=== PATIENT | male | born 1975 | race Caucasian/White ===

== ENCOUNTER 2017-09-27 08:05 | Emergency (ER) | payer OTHER ==
[2017-09-27] MEDS: HYDROCODONE/APAP (10/325) TAB PO (08:52)
== END 2017-09-27 10:26 | disposition home or self-care (01) ==
LOC: FTE 08:05
DX: S93.601A Unspecified sprain of right foot, initial encounter (principal); F17.210 Nicotine dependence, cigarettes, uncomplicated; X58.XXXA Exposure to other specified factors, initial encounter; Y92.9 Unspecified place or not applicable
CPT/HCPCS: 29515; 73630; 99283-25

== ENCOUNTER 2017-11-02 11:47 | Emergency (ER) | payer OTHER ==
[2017-11-02] MEDS: KETOROLAC 30 MG INJ IV (13:57)
[2017-11-02 14:01] LABS: ADD MAN DIFF? NO
[2017-11-02 14:06] LABS: BASOPHIL # 0.1 10^3/ul (0.0-0.1); BASOPHILS % 0.5 % (0.0-2.0); EOSINOPHILS # 0.1 10^3/ul (0.0-0.5); EOSINOPHILS % 1.1 % (0.0-7.0); HEMATOCRIT 37.5 % (42.0-52.0); HEMOGLOBIN 12.9 g/dl (14.0-18.0); LYMPHOCYTES % 18.3 % (15.0-51.0); MEAN CORPUSCULAR HEMOGLOBIN 28.2 pg (29.0-33.0); MEAN CORPUSCULAR HGB CONC 34.4 g/dl (32.0-37.0); MEAN CORPUSCULAR VOLUME 81.9 fl (82.0-101.0); MEAN PLATELET VOLUME 10.3 fl (7.4-10.4); MONOCYTES % 9.5 % (0.0-11.0); NEUTROPHIL # 7.6 10^3/ul (1.6-7.5); NEUTROPHILS % 70.2 % (39.0-77.0); PLATELET COUNT 357 10^3/UL (140-415); RED BLOOD COUNT 4.58 10^6/ul (4.70-6.10); RED CELL DISTRIBUTION WIDTH 11.9 % (11.5-14.5)
[2017-11-02 14:06] LABS: WHITE BLOOD COUNT 10.8 10^3/ul (4.8-10.8)
[2017-11-02] MEDS: CLINDAMYCIN 900 MG/D5W (PMX) 50 ML IVPB (14:09)
[2017-11-02 14:24] LABS: ALANINE AMINOTRANSFERASE 32 IU/L (13-69); ALBUMIN 4.1 g/dl (3.3-4.9); ALBUMIN/GLOBULIN RATIO 1.41; ALKALINE PHOSPHATASE 108 IU/L (42-121); ANION GAP 18 (8-16); ASPARTATE AMINO TRANSFERASE 29 IU/L (15-46); BILIRUBIN,INDIRECT 0.3 mg/dl (0-1.1); BILIRUBIN,TOTAL 0.3 mg/dl (0.2-1.3); BLOOD UREA NITROGEN 10 mg/dl (7-20); CALCIUM 8.8 mg/dl (8.4-10.2); CARBON DIOXIDE 25 mmol/L (21-31); CHLORIDE 99 mmol/L (97-110); CREATININE 0.79 mg/dl (0.61-1.24); GLUCOSE 77 mg/dl (70-220); POTASSIUM 4.5 mmol/L (3.5-5.1); SODIUM 137 mmol/L (135-144)
== END 2017-11-02 15:28 | disposition home or self-care (01) ==
LOC: FTE 11:47
DX: L03.114 Cellulitis of left upper limb (principal); F17.210 Nicotine dependence, cigarettes, uncomplicated
CPT/HCPCS: 80053; 85025; 96374; 96375; 99284-25

== ENCOUNTER 2017-12-25 14:58 | Emergency (ER) | payer OTHER ==
[2017-12-25] MEDS ORDERED: HYDROmorphONE 1 MG/5 ML IV SYRINGE IV (17:26)
[2017-12-25] MEDS ORDERED: ONDANSETRON 4 MG INJ IV (17:26)
[2017-12-25] MEDS ORDERED: SOD CHLORIDE 0.9% 1,000 ML IV (17:26)
== END 2017-12-25 18:00 | disposition left against medical advice (07) ==
LOC: E/R 14:58
DX: R10.10 Upper abdominal pain, unspecified (principal); F17.210 Nicotine dependence, cigarettes, uncomplicated
CPT/HCPCS: 99282; J7030

== ENCOUNTER 2017-12-26 08:39 | Emergency (ER) | payer OTHER ==
[2017-12-26] MEDS ORDERED: CEFTRIAXONE 1 GM INJ IM (09:30)
[2017-12-26 09:31] LABS: ADD MAN DIFF? NO
[2017-12-26] MEDS: SOD CHLORIDE 0.9% 1,000 ML IV (09:34)
[2017-12-26] MEDS: CEFTRIAXONE 1 GM/50 ML (PMX) 50 ML IVPB (09:35)
[2017-12-26 09:46] LABS: BASOPHILS % 0.4 % (0.0-2.0); EOSINOPHILS # 0.3 10^3/ul (0.0-0.5); EOSINOPHILS % 2.3 % (0.0-7.0); HEMATOCRIT 38.8 % (42.0-52.0); HEMOGLOBIN 12.9 g/dl (14.0-18.0); LYMPHOCYTES # 1.9 10^3/ul (0.8-2.9); LYMPHOCYTES % 17.5 % (15.0-51.0); MEAN CORPUSCULAR HEMOGLOBIN 27.2 pg (29.0-33.0); MEAN CORPUSCULAR HGB CONC 33.2 g/dl (32.0-37.0); MEAN CORPUSCULAR VOLUME 81.9 fl (82.0-101.0); MONOCYTE # 1.1 10^3/ul (0.3-0.9); MONOCYTES % 9.6 % (0.0-11.0); NEUTROPHIL # 7.7 10^3/ul (1.6-7.5); NEUTROPHILS % 69.5 % (39.0-77.0); PLATELET COUNT 345 10^3/UL (140-415); RED BLOOD COUNT 4.74 10^6/ul (4.70-6.10); RED CELL DISTRIBUTION WIDTH 19.6 % (11.5-14.5)
[2017-12-26] MEDS: KETOROLAC 30 MG INJ IV (09:48)
[2017-12-26] MEDS: ONDANSETRON 4 MG INJ IV (09:48)
[2017-12-26] MEDS: VANCOMYCIN 1 GM (PMX) 250 ML IVPB (09:49)
[2017-12-26 09:59] LABS: LACTIC ACID 1.6 mmol/L (0.5-2.0)
[2017-12-26 10:02] LABS: ALANINE AMINOTRANSFERASE 100 IU/L (13-69); ALBUMIN 3.5 g/dl (3.3-4.9); ALBUMIN/GLOBULIN RATIO 0.97; ALKALINE PHOSPHATASE 169 IU/L (42-121); ANION GAP 12 (8-16); ASPARTATE AMINO TRANSFERASE 79 IU/L (15-46); BILIRUBIN,INDIRECT 1.3 mg/dl (0-1.1); BILIRUBIN,TOTAL 1.3 mg/dl (0.2-1.3); BLOOD UREA NITROGEN 8 mg/dl (7-20); CALCIUM 8.7 mg/dl (8.4-10.2); CARBON DIOXIDE 28 mmol/L (21-31); CHLORIDE 106 mmol/L (97-110); CREATININE 0.74 mg/dl (0.61-1.24); GLUCOSE 92 mg/dl (70-220); LIPASE 75 U/L (23-300); POTASSIUM 3.8 mmol/L (3.5-5.1); SODIUM 142 mmol/L (135-144); TOTAL PROTEIN 7.1 g/dl (6.1-8.1)
[2017-12-26 10:13] LABS: INR 0.99; PROTIME 13.2 Sec (11.9-14.9)
[2017-12-26 10:14] LABS: PARTIAL THROMBOPLASTIN TIME 31.8 Sec (25.0-35.0)
[2017-12-26 11:08] LABS: ADD UMIC NO; UR ASCORBIC ACID NEGATIVE (NEGATIVE); UR BILIRUBIN (Dip) NEGATIVE (NEGATIVE); UR BLOOD (Dip) NEGATIVE (NEGATIVE); UR CLARITY CLEAR (CLEAR); UR COLOR YELLOW (YELLOW); UR GLUCOSE (Dip) NEGATIVE (NEGATIVE); UR KETONES (Dip) NEGATIVE (NEGATIVE); UR LEUKOCYTE ESTERASE (Dip) NEGATIVE Leu/ul (NEGATIVE); UR NITRITE (Dip) NEGATIVE (NEGATIVE); UR SPECIFIC GRAVITY (Dip) 1.006 (1.003-1.030); UR TOTAL PROTEIN (Dip) NEGATIVE (NEGATIVE); UR UROBILINOGEN (Dip) NEGATIVE (NEGATIVE)
== END 2017-12-26 11:22 | disposition home or self-care (01) ==
LOC: FTE 08:39
DX: L03.113 Cellulitis of right upper limb (principal); Z87.891 Personal history of nicotine dependence
CPT/HCPCS: 36415; 73110; 73110-RT; 76536; 80053; 81003; 83605; 83690; 85025; 85610; 85730; 87040; 96374; 96375; 99285-25

== ENCOUNTER 2018-07-02 12:48 | Emergency (ER) | payer OTHER | END 2018-07-02 16:45 | disposition home or self-care (01) | LOC: FTE 12:48 | DX: S09.90XA Unspecified injury of head, initial encounter (principal); F17.210 Nicotine dependence, cigarettes, uncomplicated; S29.001A Unspecified injury of muscle and tendon of front wall of thorax, initial encounter; R51 Headache; R07.81 Pleurodynia; V89.2XXA Person injured in unspecified motor-vehicle accident, traffic, initial encounter | CPT/HCPCS: 70450; 71045; 72125; 76536; 99284-25 ==

== ENCOUNTER 2018-11-04 07:15 | Emergency (ER) | payer OTHER ==
[2018-11-04] MEDS: SOD CHLORIDE 0.9% 1,000 ML IV (08:08)
[2018-11-04] MEDS: HYDROmorphONE 1 MG/ML SYG IV ×2 (08:08→10:07)
[2018-11-04] MEDS: ONDANSETRON 4 MG INJ IV (08:08)
[2018-11-04 08:22] LABS: ADD MAN DIFF? NO; HAAIG REFLEX REFLEX FILED
[2018-11-04 08:26] LABS: BASOPHILS % 0.5 % (0.0-2.0); EOSINOPHILS # 0.1 10^3/ul (0.0-0.5); EOSINOPHILS % 1.2 % (0.0-7.0); HEMATOCRIT 36.8 % (42.0-52.0); HEMOGLOBIN 12.3 g/dl (14.0-18.0); LYMPHOCYTES # 2.2 10^3/ul (0.8-2.9); LYMPHOCYTES % 25.1 % (15.0-51.0); MEAN CORPUSCULAR HGB CONC 33.4 g/dl (32.0-37.0); MEAN CORPUSCULAR VOLUME 83.6 fl (82.0-101.0); MEAN PLATELET VOLUME 9.9 fl (7.4-10.4); MONOCYTE # 0.5 10^3/ul (0.3-0.9); NEUTROPHIL # 5.8 10^3/ul (1.6-7.5); NEUTROPHILS % 66.9 % (39.0-77.0); PLATELET COUNT 381 10^3/UL (140-415)
[2018-11-04 08:26] LABS: WHITE BLOOD COUNT 8.7 10^3/ul (4.8-10.8)
[2018-11-04 08:46] LABS: INR 0.91; PROTIME 12.4 Sec (11.9-14.9)
[2018-11-04 08:47] LABS: ALANINE AMINOTRANSFERASE 19 IU/L (13-69); ALBUMIN 3.7 g/dl (3.3-4.9); ALBUMIN/GLOBULIN RATIO 1.32; ALKALINE PHOSPHATASE 84 IU/L (42-121); AMYLASE 47 U/L (11-123); ANION GAP 10 (5-13); ASPARTATE AMINO TRANSFERASE 13 IU/L (15-46); BILIRUBIN,INDIRECT 0.1 mg/dl (0-1.1); BILIRUBIN,TOTAL 0.1 mg/dl (0.2-1.3); BLOOD UREA NITROGEN 8 mg/dl (7-20); CALCIUM 9.1 mg/dl (8.4-10.2); CARBON DIOXIDE 25 mmol/L (21-31); CHLORIDE 105 mmol/L (97-110); CREATININE 0.78 mg/dl (0.61-1.24); Estimated GFR > 60 mL/min (>60); GLUCOSE 102 mg/dl (70-220); LIPASE 86 U/L (23-300); PARTIAL THROMBOPLASTIN TIME 27.5 Sec (23.0-35.0); POTASSIUM 3.7 mmol/L (3.5-5.1); SODIUM 140 mmol/L (135-144); TOTAL PROTEIN 6.5 g/dl (6.1-8.1)
[2018-11-04 08:59] LABS: TROPONIN-I < 0.012 ng/ml (0.000-0.120)
[2018-11-04] MEDS: IOHEXOL 300MG/ML 150 ML BTL (09:11)
[2018-11-04] MEDS: SOD CHLORIDE 0.9% 100 ML (09:11)
[2018-11-04 09:18] LABS: HEPATITIS B SURFACE ANTIGEN NEGATIVE (NEGATIVE)
[2018-11-04 09:35] LABS: HEPATITIS B CORE ANTIBODY REACTIVE (NEGATIVE); HEPATITIS C VIRAL ANTIBODY NEGATIVE (NEGATIVE)
[2018-11-04] MEDS: FAMOTIDINE 20 MG INJ IV (10:07)
[2018-11-04] MEDS: PANTOPRAZOLE 40 MG INJ IV (10:07)
[2018-11-04] MEDS: morphine 4 MG/ML VIAL IV (10:07)
== END 2018-11-04 11:06 | disposition home or self-care (01) ==
LOC: E/R 07:15
DX: K29.80 Duodenitis without bleeding (principal); F17.210 Nicotine dependence, cigarettes, uncomplicated
CPT/HCPCS: 36415; 71045; 74177; 80053; 82150; 83690; 84484; 85025; 85610; 85730; 86704; 86709; 86803; 86850; 86900; 86901; 87040; 87340; 93005; 96374; 96375; 99285-25

== ENCOUNTER 2018-11-06 09:53 | Emergency (ER) | payer OTHER ==
[2018-11-06] MEDS: LIDOCAINE/MYLANTA 40 ML BTL PO (10:35)
== END 2018-11-06 10:54 | disposition home or self-care (01) ==
LOC: E/R 09:53
DX: R10.84 Generalized abdominal pain (principal); F17.210 Nicotine dependence, cigarettes, uncomplicated
CPT/HCPCS: 99282; Z7502

== ENCOUNTER 2019-05-02 09:16 | Emergency (ER) | payer SELFPAY, OTHER | END 2019-05-02 10:54 | disposition left against medical advice (07) | LOC: FTE 09:16 | DX: Z53.21 Procedure and treatment not carried out due to patient leaving prior to being seen by health care provider (principal) ==